=== PATIENT | female | born 1935 | race Caucasian/White ===

== ENCOUNTER 2024-09-18 11:22 | Emergency (ER) | payer MEDICARE, MEDICAID ==
[2024-09-18 13:52] LABS: #Basophils Less than 0.03 10x3/uL (0.0-0.2); %Basophils 0.3 % (0.0-1.0); %Eosinophils 3.1 % (0.0-10.0); %Lymphocytes 21.8 % (21.0-51.0); %Neutrophils 67.5 % (42.0-75.0); Hematocrit 37.6 % (36.0-47.0); Hemoglobin 12.1 g/dL (12.0-16.0); Mean Corpuscular HGB CONC 32.2 g/dL (32.0-36.0); Mean Corpuscular Hemoglobin 28.8 pg (27.0-31.0); Mean Corpuscular Volume 89.5 fL (78.0-98.0); Mean Platelet Volume 10.6 fL (7.4-10.4); Platelet Count 199 10x3/uL (130-400)
[2024-09-18 14:13] LABS: Anion Gap 13 mmol/L (10-20); BUN (Urea Nitrogen) 17 mg/dL (9.8-20.1); Calc. Creatinine Clearance 0 mL/min (70-130); Carbon Dioxide 25 mmol/L (23-31); Chloride 106 mmol/L (98-107); Potassium 4.2 mmol/L (3.5-5.1); Sodium 140 mmol/L (136-145)
[2024-09-18 14:14] LABS: ALT (SGPT) 17 U/L (Less than 34); AST (SGOT) 25 U/L (11-34); Albumin 3.6 g/dL (3.1-4.5); Alkaline Phosphatase 142 U/L (40-110); Bilirubin, Total 0.5 mg/dL (0.3-1.2); Calcium 11.3 mg/dL (7.8-10.44); Estimated GFR 68; Globulin 3.6 g/dL (2.4-3.5); Glucose 145 mg/dL (83-110); Protein, Total 7.2 g/dL (5.8-8.1)
[2024-09-18] MEDS ORDERED: Magnesium 2 GM/50 ML BAG (IN WATER) ONE (14:41)
== END 2024-09-18 16:50 ==
LOC: ERS 11:22
DX: R53.1 Weakness (principal); I49.3 Ventricular premature depolarization; I48.91 Unspecified atrial fibrillation; I11.0 Hypertensive heart disease with heart failure; I50.9 Heart failure, unspecified; E78.5 Hyperlipidemia, unspecified
CPT/HCPCS: 70450; 71045; 83735; 83880; 87428; 93005; J3475; 36415; 51701; 80053; 84443; 85025; 96365